=== PATIENT | female | born 1955 | race Caucasian/White ===

== ENCOUNTER → 2023-12-13 07:51 | Outpatient (REF) | payer SELFPAY | LOC: RAD 07:51 | PROVIDERS: ATTENDING PHYSICIAN Nurse Practitioner Family | DX: I10 Essential (primary) hypertension (principal); R73.03 Prediabetes; E78.5 Hyperlipidemia, unspecified | CPT/HCPCS: 75571 ==

== ENCOUNTER → 2024-06-04 07:36 | Outpatient (REF) | payer MEDICARE, OTHER, SELFPAY | LOC: WDC 07:36 | PROVIDERS: ATTENDING PHYSICIAN Physician Assistant | DX: Z12.31 Encounter for screening mammogram for malignant neoplasm of breast (principal) | CPT/HCPCS: 77063; 77067 ==

== ENCOUNTER → 2025-06-08 07:31 | Outpatient (REF) | payer MEDICARE, OTHER, SELFPAY | LOC: WDC 07:31 | PROVIDERS: ATTENDING PHYSICIAN Physician Assistant | DX: Z12.31 Encounter for screening mammogram for malignant neoplasm of breast (principal) | CPT/HCPCS: 77063; 77067 ==